=== PATIENT | female | born 2005 | race Caucasian/White ===

== ENCOUNTER 2024-03-11 14:10 | Inpatient (IN) | payer BC, SELFPAY ==
[2024-03-11 06:54] VITALS: BP 110/63
[2024-03-11 07:30] VITALS: BMI 18.6
--- NOTE | 2024-03-11 07:36 | ED.GENMED ---
Addendum entered and electronically signed by Brett King DO 03/11/24 13:04:
Update prior to discharge patient with recurrent emesis retching, at this point she spent an extended period [facility]'s ER's been here for about 6 hours, believe will be prudent to admit her to the hospital put her bowel rest IV fluids antiemetics,
surgical consultation pain in her very much appreciated, we do have a plan for outpatient vascular surgery at [facility] for possible nutcracker syndrome
Original Note:
History of Present Illness
General
Chief Complaint: Abdominal Symptoms
Source: patient, records and family
Exam Limitations: none
Time Seen by Provider: 03/11/24 07:09
Nursing documentation reviewed up to this point in time: agreed with
History of Present Illness
History of Present Illness:
18-year-old college student from [place] visiting family locally for the holidays, has had 1 month of intermittent abdominal pain nausea vomiting mom thought it may be food intolerance they were keeping a food journal, we are in [place] over the
weekend developed worsening pain nausea vomiting seen at [facility] had blood work CAT scan told that she may have SMA syndrome, told to follow-up with a GI and surgeon when she gets home, was feeling okay yesterday at 11 AM developed abdominal pain nausea
vomiting vomiting most of the night, here she is retching with diffuse abdominal pain no drugs or alcohol, socially no cannabis, no prior abdominal surgeries
Past History
Past History
ED Past Surgical History: Orthopedic (Scoliosis)
Social History
Tobacco: Non-smoker
Alcohol: None
Drug: None
Personal: Single
Living: with family
Employment: Student
Phy Exam
Physical Exam
Physical Exam:
Physical Exam
General: 18 female vomiting
Neck: No jaundice slightly dry
Heart: s1/s2 regular rate and rhythm, no murmur. equal radial pulses.
Lungs: no acute respiratory distress. clear bilaterally
Abdomen: Mild diffuse tenderness without guarding or rebound
Neuro: alert and oriented. no focal neurological deficits
Skin: no rash
Psychiatric: well kept. interactive and cooperative
Extremities: no edema.
Course
Orders/Labs/Results
Orders:
Orders
03/11/24 07:19
IV Insert/Care/Rem.- Treatment PRN
0.9% Sodium Chloride 1000 ml [Nss] 1,000 ml IV BOLUS
HYDROmorphone [Dilaudid] 0.5 mg IV NOW STA
Ondansetron Injectable [Zofran] 4 mg IV NOW STA
Pantoprazole [Protonix IV] 40 mg IV NOW STA
Test Result ONCE
03/11/24 07:20
CR Obstruct Series W/pa Chest Urgent
Comment:
Reason For Exam: vomiting
03/11/24 07:40
Complete Blood Count/With Diff Urgent
Comprehensive Metabolic Panel Urgent
Lipase Urgent
03/11/24 08:02
SURGICAL CONSULT Routine
Consulting Provider: Benjamin Hughes
Was physician already notified: Yes
03/11/24 11:12
0.9% Sodium Chloride 1000 ml [Nss] 1,000 ml IV BOLUS
03/11/24 11:52
HCG, Urine Qualitative Screen Urgent
Date Specimen was Collected: 03/11/24
Time Specimen was Collected: 11:45
Urinalysis Reflex To Culture Urgent
Date Specimen was Collected: 03/11/24
Time Specimen was Collected: 11:45
Abnormal Lab Results
03/11/24
07:40
Absolute Neuts (auto) 7.3 H 10^3/uL
(1.4-6.5)
Absolute Lymphs (auto) 0.8 L 10^3/uL
(1.2-3.4)
Neutrophils % 84.2 H %
(42.2-75.2)
Lymphocytes % 9.3 L %
(20.5-51.1)
Glucose 103 H mg/dl
(70-99)
Total Protein 8.4 H g/dl
(6.3-8.2)
Albumin 5.1 H g/dl
(3.5-5.0)
03/11/24 07:40
03/11/24 07:40
Vital Signs
Initial and Last Documented VS:
Initial Vital Signs
Temp Pulse Resp BP Pulse Ox
97.7 F 115 18 110/63 100
03/11/24 06:54 03/11/24 06:54 03/11/24 06:54 03/11/24 06:54 03/11/24 06:54
Last Documented Vital Signs
Temp Pulse Resp BP Pulse Ox
97.7 F 58 18 100/62 100
03/11/24 06:54 03/11/24 11:36 03/11/24 06:54 03/11/24 11:36 03/11/24 11:36
*Critical Care Note
Total Time (30-74mins, 75-104mins- exclusive of procedures): Not Applicable
Update Note
Update Note:
Update, labs noted structures noted patient feeling much better patient was seen by both vascular and general surgery, images reviewed, concerned that this might be nutcracker syndrome as opposed to SMA syndrome, will require follow-up vascular
surgery Dr. Ribera was able to arrange some follow-up with a colleague of his in the [facility] Narinder Mojica
dw family
ED Attending Note
-
Portions of this chart may have been created with voice recognition software.� Occasional wrong word or��sound alike� substitutions may have occurred due to the inherent limitations of voice recognition software.
Discharge Plan
Departure
Patient Disposition: Home (Routine Discharge)
Date of Disposition: 03/11/24
Time of Disposition: 12:07
Patient with high blood pressure during this ER visit?: No
Condition: Good
Discharge Problem:
Nutcracker phenomenon of renal vein, Abdominal pain in female
Instructions: Abdominal Pain
Referrals:
MIAN Mcintosh [Other]
Activity Restrictions/Additional Instructions:
Anabel diet nothing fatty or spicy
Continue Pepcid as previously prescribed
Zofran every 4-6 hours as needed for nausea or vomiting
Follow-up with your primary care provider and Vascular Surery Dr. Kvng Mojica at [facility] [phone]
Interventions
Interventions:
*Risk Screen - Suicide Last Done: 03/11/24 06:54
*General Assessment Last Done: 03/11/24 06:54
*Neglect/Abuse Screening Last Done: 03/11/24 06:54
ED- Fall Risk Assessment Last Done: 03/11/24 07:31
*ED COVID-19 Vaccine History Last Done: 03/11/24 07:31
MX-Dykmec-Tbukiwrkku Assessment Last Done: 03/11/24 07:31
Discharge Date and Time
Print Language: TURKMEN
[2024-03-11] MEDS: NSS 1000 IV ×3 (07:41→17:25)
[2024-03-11] MEDS: PROTONIX IV 40 MG IV ×2 (07:43→20:27)
[2024-03-11] MEDS: DILAUDID 0.5 MG IV (07:43)
[2024-03-11] MEDS: ZOFRAN 4 MG IV ×2 (07:43→13:10)
[2024-03-11 08:03] LABS: % Basophils 0.3 % (0-2); % Eosinophils 0.8 % (0-6); % Immature Granulocytes 0.2 % (0-0.5); % Lymphocytes 9.3 % (20.5-51.1); % Monocytes 5.2 % (1.7-9.3); % Neutrophils 84.2 % (42.2-75.2); Absolute Eosinophils 0.1 10^3/uL (0-0.7); Absolute Lymphocytes 0.8 10^3/uL (1.2-3.4); Absolute Monocytes 0.5 10^3/uL (0.1-0.6); Absolute Neutrophils 7.3 10^3/uL (1.4-6.5); Hematocrit 40.7 % (37.0-47.0); Hemoglobin 13.7 g/dL (12.0-16.0); Mean Corp Hgb Conc. 33.7 g/dL (33.0-37.0); Mean Corpuscular Hgb 29.4 pg (27.0-31.0); Mean Corpuscular Volume 87.3 fL (81.0-99.0); Mean Platelet Volume 9.6 fL (7.4-10.4); Nucleated Red Blood Cells % 0 %; Platelet Count 238 10^3/uL (130-400); Red Blood Cell Count 4.66 10^6/uL (4.20-5.40); Red Cell Dist. Width 11.9 % (11.5-14.5); White Blood Cell Count 8.7 10^3/uL (4.8-10.8)
[2024-03-11 08:12] LABS: ALT (SGPT) 13 U/L (0-35); AST (SGOT) 23 U/L (14-36); Albumin 5.1 g/dl (3.5-5.0); Alkaline Phosphatase 58 U/L (38-126); Blood Urea Nitrogen 10 mg/dl (7-17); Calcium 9.6 mg/dl (8.4-10.2); Carbon Dioxide 23 mmol/L (22-30); Chloride 103 mmol/L (98-107); Estimated Creatinine Clearance 88 ml/min; Glucose 103 mg/dl (70-99); Lipase 84 U/L (23-300); Sodium 139 mmol/L (135-145); Total Bilirubin 0.7 mg/dl (0.2-1.3); Total Protein 8.4 g/dl (6.3-8.2); eGFR > 60.00
[2024-03-11 08:19] LABS: Potassium 3.8 mmol/L (3.5-5.1)
--- NOTE | 2024-03-11 08:50 | CON.VAS ---
Addendum entered and electronically signed by Aleksey Ribera III, MD 03/11/24 19:23:
This patient was seen and examined in the emergency room with JOSETTE Arriola. I agree with the history and physical exam as well as the assessment and plan. I have the following additions:
Healthy 18-year-old. Freshman in college. Lives in [place] but is out here visiting family for the holidays.
Was in [place] recently and had worsening symptoms of abdominal pain, nausea and vomiting and sought care at [facility]
Had a CT scan done at [facility]
Abdominal pain associated with nausea and vomiting of relatively recent onset
No precipitating factors
In usual state of health with no complaints prior to onset of these symptoms several weeks ago
No recent weight loss. Relatively stable around 113 pounds.
Denies hematuria
No previous abdominal complaints. No previous GI evaluation or workup.
No previous abdominal surgeries.
On exam her abdomen is flat, soft and nontender
She is nontoxic-appearing
Mom and dad at bedside
I was able to review images from [facility] CT scan on mother's iPhone. Difficult to fully interpret but appears there may be some compression of the left renal vein. No obvious findings of SMA syndrome.
Patient is being admitted for persistent nausea and vomiting, otherwise workup could continue when she returns home to [place],
Provided name at [facility] for vascular surgery-Narinder Mojica
General Surgery has evaluated the patient as well
Can obtain a dedicated CT angiogram with venogram phase to more fully evaluate her for possible nutcracker syndrome while she is here but would give IV hydration and space out dye load.
Send UA
Signed:
Aleksey Ribera III, MD
[facility] Vascular Surgery
[phone] (ghpm)
Original Note:
Consultation
Consultation Request
Date/Time Consultation Performed: 03/11/24 [id number]
Requesting Provider: Brett King MD
Performing Provider: Elma Casarez NP-C for Aleksey Ribera III, MD
Reason for Consultation: ABD pain and nausea
Medical History
-
Chief Complaint: ABD pain, nausea, vomitting
History of Present Illness:
This is a 18-year-old female with significant past medical history of scoliosis who presents to [place] ED with roughly 2 to 4 weeks of intermittent abdominal pain and nausea with an acute flare over the past 2 days. Patient is a college student
who resides in the [place] area who has been visiting family in the local area over the past week. Patient and parents who are at bedside are contributing to HPI. Patient and parents endorse that they were in the [facility] over the weekend when
patient developed acute worsening of abdominal pain accompanied with nausea and severe vomiting prompting them to seek ED evaluation at [facility] where she had an abdominal CAT scan that indicated possible SMA syndrome and recommendations were to
follow-up with a general surgeon upon returning to [place]. Patient and parents state that she was progressing well with medical management until roughly yesterday when she developed again an acute abdominal pain with accompanying nausea and vomiting,
with some bilious and blood-tinged emesis. Patient also endorses intermittent episodes of diarrhea over the past 24 to 48 hours. Patient denies any accompanying weight loss or chronic loose stools or constipation. Patient's father endorses that
he has brought a few images/ 'screen shots' from CT abdomen/pelvis done at [facility], which demonstrated SMA syndrome.
Past Medical History
Past Medical History: Other (scoliosis )
Past Surgical History: Orthopedic (Scoliosis)
Social History
Tobacco: Non-Smoker
Alcohol: None
Drug: None
Personal: Single
Living: With Family
Allergies / Home Medications
Allergy/AdvReac Type Severity Reaction Status Date / Time
No Known Allergies Allergy Unverified 03/11/24 06:54
Review of Systems
-
History Source: Patient
EENT: Reports No Symptoms
Respiratory: Reports No Symptoms
Cardiac: Reports No Symptoms
Abdomen/GI: Reports Abdominal Pain, Nausea, Vomiting and Diarrhea
: Reports No Symptoms
Musculoskeletal: Reports No Symptoms
Skin: Reports No Symptoms
Neurological: Reports No Symptoms
Endocrine: Reports No Symptoms
Physical Exam
Vital Signs
Temp Pulse Resp BP Pulse Ox
97.7 F 115 18 110/63 100
03/11/24 06:54 03/11/24 06:54 03/11/24 06:54 03/11/24 06:54 03/11/24 06:54
Lab Results
03/11/24 07:40
03/11/24 07:40
Physical Exam
General: No Apparent Distress and Comfortable
HEENT: Normocephalic, Anicteric and Atraumatic
Respiratory: Non Labored Respirations
Cardiac: Negative JVD
GI: Soft and Non Distended
Musculoskeletal: No Edema
Skin: Warm and Dry
Neuro: AO x 3
Psych: Calm
Assessment / Plan
-
Assessment: 18-year-old female with suspected SMA syndrome versus nutcracker, unable to fully diagnose given limited CT images provided from scan done at [facility] roughly 24 to 48 hours ago.
Plan:
Patient seen and examined with Dr. Aleksey Ribera III, per review with Dr. Ribera of the few CT images on father's iPad from outside hospital may actually indicate nutcracker syndrome vs. SMA syndrome. Regardless, patient will require further
imaging for substantial workup to delineate between SMA syndrome and nutcracker, all of which can be done safely in the outpatient setting. No indication for urgent vascular surgical intervention. Recommend patient follow-up with general or
vascular surgery for continued workup at [facility], as patient resides in [place].
I performed this shared service with the attending. I evaluated the patient [id number] and have entered clinical documentation as shown in the encounter note. I performed the following component(s):�history and physical exam. Note that medical
decision making is not final until attested by vascular attending.
--- NOTE | 2024-03-11 11:18 | CON.GS ---
Medical History
-
Chief Complaint: vomiting
History of Present Illness:
Ms Logan is a 18 yo college Freshman from [place], [place] [facility] with a pmh of scoliosis who presented with nausea and vomiting with her parents. The report roughly 2 to 4 weeks of intermittent abdominal pain and
nausea with an acute flare over the past 2 days. Over the summer, she does note some intermittent nausea with larger meals but no other symptoms. She denies recent weight loss and reports that she has weighed approximately 110-115 for the past year
or so. They were previously seen in the ED for evaluation at [facility] where she had an abdominal CAT scan that indicated possible SMA syndrome and recommendations were to follow-up with a general surgeon upon returning to [place]. She was progressing well
with medical management until yesterday when she developed again an acute abdominal pain with accompanying nausea and vomiting, with some bilious and blood-tinged emesis. Patient also endorses intermittent episodes of diarrhea over the past 24 to
48 hours.
Past Medical History
Past Medical History: Other (Scoliosis)
Past Surgical History: None
Social History
Tobacco: Non-Smoker
Alcohol: None
Drug: None
Family History
Family History: Reviewed & Not Pertinent
Allergies / Home Medications
Allergy/AdvReac Type Severity Reaction Status Date / Time
No Known Allergies Allergy Unverified 03/11/24 06:54
Review of Systems
-
History Source: Patient and Family
All other systems: Negative unless noted
A 10 point review of systems was completed, and was negative except as per HPI.
Physical Exam
Vital Signs
Temp Pulse Resp BP Pulse Ox
97.7 F 115 18 110/63 100
03/11/24 06:54 03/11/24 06:54 03/11/24 06:54 03/11/24 06:54 03/11/24 06:54
03/10/24 03/11/24 03/12/24
06:59 06:59 06:59
Actual Weight 49.1 kg
Body Mass Index (BMI) 18.6
Lab Results
03/11/24 07:40
03/11/24 07:40
WBC 8.7 10^3/uL (4.8-10.8) 03/11/24 07:40
Hgb 13.7 g/dL (12.0-16.0) 03/11/24 07:40
Hct 40.7 % (37.0-47.0) 03/11/24 07:40
Plt Count 238 10^3/uL (130-400) 03/11/24 07:40
Abs Immat Gran (auto) 0.0 10^3/uL (0-0.05) 03/11/24 07:40
Neutrophils % 84.2 % (42.2-75.2) H 03/11/24 07:40
Physical Exam
General: Well Developed and Other (Thin)
HEENT: Normocephalic and Moist Mucous Membranes
Respiratory: Non Labored Respirations
GI: Soft, Non Tender and Non Distended
Skin: Warm
Neuro: Awake, Alert and AO x 3
Psych: Calm
Assessment / Plan
-
18-year-old female from [place], [place] with suspected SMA syndrome versus Nutcracker syndrome, seen at bedside with Vascular team. Reviewed limited CT images provided from scan done at [facility]. Has been tolerating PO intake with occasional n/v over the
past weeks. Normal bms with occasional loose stools. Denies voiding difficulty. BMI of 18.6. ABD xr without bowel dilatation/significant abnormality. Some possible old blood vs brown food noted in emesis by her parents but no overt hematemesis;
suspect a possible Elli Baum tear given recurrent vomiting of late. Hemoglobin is WNL.
Mild tachycardia, afebrile with stable BP
Labs without significant abnormalities
UA pending
--Recommend continued work up in the outpatient setting when she returns home to [place]
--Recommend continued medical/symptomatic management.
--On Omeprazole at home, would continue
--Ok for diet from GS standpoint, recommend small frequent meals
--No acute surgical intervention planned currently
[2024-03-11 11:36] VITALS: BP 100/62
[2024-03-11 12:08] LABS: Urine Albumin Trace (Neg - Trace); Urine Bilirubin 1+ (Negative); Urine Character Slightly Cloudy (Clear); Urine Color Amber; Urine Glucose Negative (Negative); Urine Ketone Trace (Negative); Urine Leukocyte 2+ (Negative); Urine Nitrite Negative (Negative); Urine Occult Blood Negative (Negative); Urine Urobilinogen Negative (Neg - 1+)
[2024-03-11 12:17] LABS: HCG, Urine Qualitative Screen Negative; Urine Mucus Moderate; Urine Squamous Cell 16-20 /LPF (Few)
[2024-03-11 12:18] LABS: Urine Bacteria Few (Negative); Urine Red Blood Cell 0-2 /HPF (0-2)
[2024-03-11 12:33] VITALS: BP 101/60
--- NOTE | 2024-03-11 13:27 | HPS.HSE ---
Family Physician
-
Family Physician: MIAN Mcintosh
Chief Complaint
-
abdominal pain
History of Present Illness
18-year-old female who is a college student from [place] visiting family locally presenting with 1 month of intermittent abdominal pain, nausea and vomiting presenting with worsening abdominal pain and nausea and vomiting. She was recently seen at [facility]
few weeks ago for similar symptoms and had CT scan performed which showed that she may have SMA syndrome. Was told to follow-up with GI and surgeon when she got home. She was feeling okay at 11 AM yesterday but developed abdominal pain and nausea
and vomiting most of the night without relief. She is having blood in the vomit with some chunks. She has abdominal pain in the mid abdomen. Did have diarrhea which was watery without blood. No fevers or chills.
She does not drink alcohol, smoke or use marijuana.
Family history of related problems.
Medical History
Past Medical History
Past Medical History: Reports Other (scoliosis )
Past Surgical History: Reports Other (scoliosis surgery )
Social History
Tobacco: Non-smoker
Alcohol: None
Drug: None
Family History
Family History: Not pertinent
Allergies / Home Medications
Allergies reflects when Allergies were last updated in [facility].
Home Medications with original date entered in [facility]
Allergy/Medication List:
Allergies
Allergy/AdvReac Type Severity Reaction Status Date / Time
No Known Allergies Allergy Unverified 03/11/24 06:54
Home Medications
famotidine 20 mg tablet (Pepcid) 20 mg PO DAILYPRN PRN gerd 03/11/24
polyethylene glycol 3350 17 gram oral powder packet (Miralax) 17 g PO DAILYPRN PRN constipation 03/11/24
Review of Systems
-
History Source: Patient
A 12 point ROS was completed and negative except as noted: Yes
Constitutional: Reports No Symptoms
EENT: Reports No Symptoms
Respiratory: Reports No Symptoms
Cardiac: Reports No Symptoms
Abdomen/GI: Reports See HPI
: Reports No Symptoms
Musculoskeletal: Reports No Symptoms
Skin: Reports No Symptoms
Neurological: Reports No Symptoms
Endocrine: Reports No Symptoms
Hematologic/Lymphatic: Reports No Symptoms
Psych: Reports No Symptoms
Physical Exam
Vital Signs
Vital Signs
Temp Pulse Resp BP Pulse Ox
97.7 F 59 14 101/60 100
03/11/24 06:54 03/11/24 12:33 03/11/24 12:33 03/11/24 12:33 03/11/24 12:33
Physical Exam
General: Well Developed, Well Nourished and No Apparent Distress
HEENT: NormoCephalic, Moist mucous membranes and Atraumatic
Respiratory: Clear
Cardiac: S1/S2 and Regular Rhythm; No Murmur or Rub
GI: Soft, Non Distended, Normal Bowel Sounds and Tender; No Organomegaly
Rectal: Deferred by Provider
Musculoskeletal: No Clubbing, No Cyanosis and No Edema
Skin: No Rash
Neuro: Nonfocal/grossly intact
Laboratory Results
-
03/11/24 07:40
03/11/24 07:40
Laboratory Results
Total Bilirubin 0.7 mg/dl (0.2-1.3) 03/11/24 07:40
AST 23 U/L (14-36) 03/11/24 07:40
ALT 13 U/L (0-35) 03/11/24 07:40
Alkaline Phosphatase 58 U/L (38-126) 03/11/24 07:40
Lipase 84 U/L (23-300) 03/11/24 07:40
Data Reviewed
-
Lab Data: Labs Reviewed by me
Old Records: Reviewed
Impression/Plan
-
IMPRESSION:
PLAN:
# SMA syndrome
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
-Chest/abdominal x-ray shows no acute cardiopulmonary process, nonobstructive bowel gas pattern, specific distal large bowel air-fluid levels without free air
-Vascular surgery consulted, looked at images and recommended outpatient follow-up with [facility] for SMA syndrome versus nutcracker syndrome
-N.p.o.
-IV fluids
-Protonix 40 twice daily
-General Surgery was consulted and recommended upper GI with small bowel follow-through
-Zofran, Dilaudid as needed
History of scoliosis status post back surgery
Full code
DVT prophylaxis�SCDs
N.p.o.
[2024-03-11 17:00] VITALS: BP 103/69
--- NOTE | 2024-03-11 17:34 | PTCARENOTE ---
Pt received from the ED via stretcher. Transport was w/o incident. Pt is AAOx3, HRR, lungs are clear, resp. easy. Pt began violently dry heaving during admission process, MD notified, order for Compazine received. Will medicate as ordered. VSS, Pt
is afebrile. Pt and Pt's family instructed on plan of care. Pt and family verbalized understanding of instructions. Call roberts is within reach.
[2024-03-11] MEDS: COMPAZINE 5 MG IV (17:53)
[2024-03-11] MEDS: NSS (PRESERVATIVE FREE) 10 ML IV (20:27)
[2024-03-11 23:30] VITALS: BP 101/58
[2024-03-12] MEDS: NSS 1000 IV ×2 (05:12→17:25)
[2024-03-12 07:11] LABS: % Basophils 0.4 % (0-2); % Eosinophils 1.1 % (0-6); % Immature Granulocytes 0.4 % (0-0.5); % Lymphocytes 23.7 % (20.5-51.1); % Monocytes 9.3 % (1.7-9.3); % Neutrophils 65.1 % (42.2-75.2); Absolute Lymphocytes 0.6 10^3/uL (1.2-3.4); Absolute Monocytes 0.3 10^3/uL (0.1-0.6); Absolute Neutrophils 1.8 10^3/uL (1.4-6.5); Hematocrit 34.5 % (37.0-47.0); Hemoglobin 11.3 g/dL (12.0-16.0); Mean Corp Hgb Conc. 32.8 g/dL (33.0-37.0); Mean Corpuscular Hgb 29.4 pg (27.0-31.0); Mean Corpuscular Volume 89.6 fL (81.0-99.0); Mean Platelet Volume 9.7 fL (7.4-10.4); Nucleated Red Blood Cells % 0 %; Platelet Count 153 10^3/uL (130-400); Red Blood Cell Count 3.85 10^6/uL (4.20-5.40); Red Cell Dist. Width 11.8 % (11.5-14.5); White Blood Cell Count 2.7 10^3/uL (4.8-10.8)
[2024-03-12 07:25] VITALS: BP 95/51
[2024-03-12 07:40] LABS: ALT (SGPT) < 10 U/L (0-35); AST (SGOT) 20 U/L (14-36); Albumin 3.6 g/dl (3.5-5.0); Alkaline Phosphatase 34 U/L (38-126); Blood Urea Nitrogen 11 mg/dl (7-17); Carbon Dioxide 21 mmol/L (22-30); Chloride 106 mmol/L (98-107); Estimated Creatinine Clearance 100 ml/min; Glucose 74 mg/dl (70-99); Potassium 3.8 mmol/L (3.5-5.1); Sodium 137 mmol/L (135-145); Total Bilirubin 0.8 mg/dl (0.2-1.3); Total Protein 6.3 g/dl (6.3-8.2); eGFR > 60.00
[2024-03-12] MEDS: PROTONIX IV 40 MG IV ×2 (09:33→19:57)
[2024-03-12] MEDS: NSS (PRESERVATIVE FREE) 10 ML IV ×2 (09:34→19:56)
[2024-03-12 10:42] VITALS: BMI 18.6
--- NOTE | 2024-03-12 11:27 | CM ---
Patient seen bedside.
IA completed.
patient lives with parents in a 2 story home.
patient independent prior to admission without assistive devices.
patient attends college.
patient drives.
PCP: Dr Mcintosh
Pharmacy: [facility]
Plan: home no needs anticipated.
--- NOTE | 2024-03-12 11:31 | W.PN.HOSP.TC ---
Today's Communication/Plan
-
monitor vitals
see plan
dietary consult
start clears
surgery and vascular evaluation
discussed with family at bedside
Assessment / Plan
Assessment / Plan
General: Well Developed, Well Nourished and No Apparent Distress
HEENT: NormoCephalic
Respiratory: no audible wheeze
Cardiac:Regular Rhythm
GI: Soft, Non Distended, Normal Bowel Sounds and Tender
Musculoskeletal: No Edema
Neuro: Nonfocal/grossly intact
SMA syndrome
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
-Chest/abdominal x-ray shows no acute cardiopulmonary process, nonobstructive bowel gas pattern, specific distal large bowel air-fluid levels without free air
-Vascular surgery consulted, looked at images and recommended outpatient follow-up with [facility] for SMA syndrome versus nutcracker syndrome
currently feeling better, not nauseous. last compazine use was yesterday. start clears, advance diet as tolerated. Consult field return repairer and speech. recommend small frequent meals
-IV fluids
-Protonix 40 twice daily
-General Surgery was consulted and recommended upper GI with small bowel follow-through consisted with known diagnosis of dilated duodenum
-antiemetics, Dilaudid as needed
Patient is from [place] and will eventually follow up with consultants there.
History of scoliosis status post back surgery
Full code
DVT prophylaxis�SCDs
Anticipated Discharge: Within 24 hours
Subjective/Interval History
-
Date of Service: March 12, 2024
denies nausea
Objective Data
-
Labs:
Laboratory Results
03/12/24
06:25
WBC 2.7 L
Hgb 11.3 L
Hct 34.5 L
Plt Count 153 D
Sodium 137
Potassium 3.8
Chloride 106
Carbon Dioxide 21 L
BUN 11
Creatinine 0.7
Glucose 74
Calcium 8.0 L D
Total Bilirubin 0.8
AST 20
ALT < 10
Alkaline Phosphatase 34 L
Vital Signs:
Vital Signs
Temp Pulse Resp BP Pulse Ox
97.1 F 65 16 95/51 99
03/12/24 07:25 03/12/24 07:25 03/12/24 07:25 03/12/24 07:25 03/12/24 07:25
I&O
03/11/24 03/12/24 03/13/24
06:59 06:59 06:59
Intake Total 960 / 960
Balance 960 / 960
--- NOTE | 2024-03-12 14:25 | PTOTSP ---
Speech Therapy Evaluation:
Pt presents with functional oropharyngeal swallow. Pt with no predisposing or precipitating risk factors pharyngeal dysphagia, however risk of post-prandial aspiration elevated given ongoing vomiting. Pt with no s/sx of aspiration across PO trials.
E LEARNING SPECIALIST to s/o.
Recommend:
1. Regular solids and thin liquids
2. Medications as tolerated
3. General aspiration and reflux precautions
4. Small, frequent meals
5. E LEARNING SPECIALIST to s/o - please reconsult if indicated
--- NOTE | 2024-03-12 14:36 | W.PN.SURGUPD ---
Surgical Update
Surgical Update
UTI imaging from yesterday reviewed. No evidence of significant stricturing or obstruction. There is some mild dilation of the duodenum consistent with a possible diagnosis of SMA syndrome. Recommend pur�ed or liquid diet with supplement shakes.
Johnson to management will be weight gain. No plans or indication for surgical intervention. Follow-up as an outpatient at [facility]. Please call with any questions or concerns.
[2024-03-12 18:11] VITALS: BP 116/73
[2024-03-12 23:30] VITALS: BP 111/72
[2024-03-13] MEDS: NSS 1000 IV (05:38)
[2024-03-13 07:08] LABS: % Basophils 0.3 % (0-2); % Immature Granulocytes 0.3 % (0-0.5); % Lymphocytes 25.1 % (20.5-51.1); % Monocytes 10.4 % (1.7-9.3); % Neutrophils 61.9 % (42.2-75.2); Absolute Eosinophils 0.1 10^3/uL (0-0.7); Absolute Lymphocytes 0.8 10^3/uL (1.2-3.4); Absolute Monocytes 0.3 10^3/uL (0.1-0.6); Absolute Neutrophils 1.9 10^3/uL (1.4-6.5); Hematocrit 32.1 % (37.0-47.0); Hemoglobin 11.2 g/dL (12.0-16.0); Mean Corp Hgb Conc. 34.9 g/dL (33.0-37.0); Mean Corpuscular Hgb 30.2 pg (27.0-31.0); Mean Corpuscular Volume 86.5 fL (81.0-99.0); Mean Platelet Volume 9.5 fL (7.4-10.4); Nucleated Red Blood Cells % 0 %; Platelet Count 138 10^3/uL (130-400); Red Blood Cell Count 3.71 10^6/uL (4.20-5.40); Red Cell Dist. Width 11.7 % (11.5-14.5)
[2024-03-13 07:43] LABS: Blood Urea Nitrogen 7 mg/dl (7-17); Calcium 8.1 mg/dl (8.4-10.2); Carbon Dioxide 22 mmol/L (22-30); Chloride 105 mmol/L (98-107); Estimated Creatinine Clearance 117 ml/min; Glucose 82 mg/dl (70-99); Potassium 3.7 mmol/L (3.5-5.1); Sodium 135 mmol/L (135-145); eGFR > 60.00
[2024-03-13] MEDS: PROTONIX IV 40 MG IV (08:53)
[2024-03-13] MEDS: NSS (PRESERVATIVE FREE) 10 ML IV (08:53)
[2024-03-13 09:00] VITALS: BP 107/70
--- NOTE | 2024-03-13 11:02 | W.PN.HOSP.TC ---
Today's Communication/Plan
-
monitor vitals
see plan
Discussed with family, discharge today
Diet advanced to pur�ed; ensure
time of discharge 37 minutes
Assessment / Plan
Assessment / Plan
General: Well Developed, Well Nourished and No Apparent Distress
HEENT: NormoCephalic
Respiratory: no audible wheeze
Cardiac:Regular Rhythm
GI: Soft, Non Distended, Normal Bowel Sounds and Tender
Musculoskeletal: No Edema
Neuro: Nonfocal/grossly intact
SMA syndrome
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
-Chest/abdominal x-ray shows no acute cardiopulmonary process, nonobstructive bowel gas pattern, specific distal large bowel air-fluid levels without free air
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
currently feeling better, not nauseous. last compazine use was 03/11. tolerated fulls; advance to pureed diet. Patient to stay on this diet. Ensure 3 times daily. Discussed with family at bedside. Patient will follow-up with physicians in [place].
Has seen dietitian and speech here. recommend small frequent meals
-Protonix; can also do pepcid
-General Surgery was consulted and recommended upper GI with small bowel follow-through consisted with known diagnosis of dilated duodenum
-antiemetics, Dilaudid as needed
Patient is from [place] and will eventually follow up with consultants there.
History of scoliosis status post back surgery
Full code
DVT prophylaxis�SCDs
Anticipated Discharge: Today
Subjective/Interval History
-
Date of Service: March 13, 2024
denies pain
Objective Data
-
Labs:
Laboratory Results
03/13/24
06:50
WBC 3.0 L
Hgb 11.2 L
Hct 32.1 L
Plt Count 138
Sodium 135
Potassium 3.7
Chloride 105
Carbon Dioxide 22
BUN 7
Creatinine 0.6
Glucose 82
Calcium 8.1 L
Vital Signs:
Vital Signs
Temp Pulse Resp BP Pulse Ox
98.0 F 71 16 107/70 99
03/13/24 09:00 03/13/24 09:00 03/13/24 09:00 03/13/24 09:00 03/13/24 09:00
I&O
03/12/24 03/13/24 03/14/24
06:59 06:59 06:59
Intake Total 960 / 960 1440 / 1440
Balance 960 / 960 1440 / 1440
--- NOTE | 2024-03-13 11:12 | W.DCSUMMARY ---
Discharge Summary
Discharge Data
Date of Admission: 03/11/24
Date of Discharge: 03/13/24
-
Pending Results: No
Hospital Course
18-year-old female with past medical history of scoliosis status post back surgery, recent diagnosis of SMA syndrome came to the hospital with intractable nausea vomiting and abdominal pain. Patient was seen by vascular surgery and general surgery
throughout hospitalization. It was determined that patient symptoms are likely from SMA syndrome. Patient recently went to a hospital in [facility] and had a CAT scan done which showed signs of SMA. While patient was here in the hospital her
symptoms continue to get better with fluids and antiemetics. She was also seen by speech therapy and glassware finisher. Once her symptoms continue to improve, she was then started on diet. On discharge she was instructed to continue pur�ed diet with
supplement shakes to ensure that she is gaining weight. Patient is from [place] and was instructed to follow-up soon with primary care provider and surgery outpatient. Patient was also given instructions by glassware finisher regarding her diet. Once she
was able to tolerate diet, she was then discharged with instructions to follow-up with all her physicians in [place] outpatient.
Discharge Plan
-
Patient Disposition: Home (Routine Discharge)
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
Condition: Fair
Diet: Other diet
Additional Diets: Pur�ed diet, Ensure 3 times daily
Activity Restrictions/Additional Instructions:
Eat soft foods
Use high-fiber carbs
Limit added sugars
Frequent smaller meals
Follow-up with your primary care provider soon as possible. Also will need surgical consultation
Referrals:
PRIVATE,PHYSICIAN [Family Provider] - in less than 1 week
Prescriptions:
New
ondansetron HCl 4 mg tablet
4 mg PO Q8H PRN (Reason: nausea and vomiting) Qty: 20 0RF
Continued
polyethylene glycol 3350 [Miralax] 17 gram Powder In Packet
17 g PO DAILYPRN PRN (Reason: constipation)
Changed
famotidine [Pepcid] 20 mg Tablet
20 mg PO DAILY Qty: 0 0RF
Discharge Orders:
Discharge Patient (As Directed); Ordered 03/13/24
Ordered By: Eugene Lyn
Discharge Date and Time
Discharge Date/Time: 03/13/24 12:28
Print Language: [id number]
== END 2024-03-13 12:28 | disposition home or self-care (01) | DRG 393 ==
LOC: 2 SOUTH 14:10
PROVIDERS: ADMITTING PHYSICIAN Hospitalist; ATTENDING PHYSICIAN Internal Medicine; CONSULT PHYSICIAN Surgery; CONSULT PHYSICIAN Surgery Vascular Surgery; EMERGENCY PHYSICIAN Emergency Medicine
DX: K55.1 Chronic vascular disorders of intestine (principal); K22.6 Gastro-esophageal laceration-hemorrhage syndrome; K92.0 Hematemesis
CPT/HCPCS: 74022; 74240; 74248; 80048; 80053; 81003; 81015; 81025; 83690; 85025; 87086; 92610; 96361; 96374; 96375; 96376; 99285